=== PATIENT | female | born 1975 | race Caucasian/White ===

== ENCOUNTER 2022-04-26 08:41 | Outpatient (REF) | payer OTHER, SELFPAY ==
[2022-04-26 08:52] LABS: MANUAL DIFF FLAG NO
[2022-04-26 08:58] LABS: Basophils Percent Auto 0.4 % (0-2); Eosinophils Absolute Auto 0.1 X10*3/uL (0.0-0.4); Eosinophils Percent Auto 1.1 % (0-4); Hematocrit 40.6 % (37.0-47.0); Hemoglobin 13.3 g/dl (12.0-16.0); Imm Gran Abs Auto 0.02 X10*3/uL (0.00-0.03); Imm Gran Pct Auto 0.4 % (0.0-0.4); Lymphocytes Percent Auto 35.7 % (20-40); Mean Corpuscular HGB Conc 32.8 g/dl (31.0-35.0); Mean Corpuscular Volume 88.6 fL (80.0-98.0); Monocytes Absolute Auto 0.4 X10*3/uL (0.1-1.2); Monocytes Percent Auto 6.6 % (2-11); Neutrophils Absolute Auto 3.1 x10*3/uL (2.0-8.3); Neutrophils Percent Auto 55.8 % (45-73); Platelet Count 189 X10*3/uL (160-400); Red Blood Count 4.58 X10*6/uL (4.20-5.50); Red Cell Distribution Width 12.7 % (11.0-16.0); White Blood Count 5.5 X10*3/uL (4.8-10.8)
[2022-04-26 09:22] LABS: Alanine Aminotransferase 24 U/L (0-31); Albumin Level 4.2 g/dL (3.5-5.0); Alkaline Phosphatase 56 U/L (39-117); Aspartate Amino Transferase 21 U/L (5-31); Bilirubin Direct 0.2 mg/dL (0.0-0.5); Bilirubin Total 0.7 mg/dL (0.0-1.0); Total Protein 7.1 g/dL (6.5-8.0)
== END 2022-04-26 08:42 | disposition home or self-care (01) ==
LOC: HO.LAB 08:41
PROVIDERS: Visit Provider Physician Assistant
DX: R10.9 Unspecified abdominal pain (principal); K59.09 Other constipation; G89.29 Other chronic pain
CPT/HCPCS: 36415; 80076; 85025; 99202

== ENCOUNTER 2022-05-04 14:44 | Outpatient (REF) | payer OTHER, SELFPAY ==
[2022-05-04 15:55] LABS: TSH reflex Free T4 0.79 uIU/mL (0.32-4.0)
[2022-05-06 13:58] LABS: Transglutaminase Ab IgG <1.0 U/mL; Transglutaminase IgA <1.0 U/mL
== END 2022-05-04 14:45 | disposition home or self-care (01) ==
LOC: HO.LAB 14:44
PROVIDERS: PCP Nurse Practitioner Family; Visit Provider Nurse Practitioner Family
DX: R10.9 Unspecified abdominal pain (principal); K59.00 Constipation, unspecified
CPT/HCPCS: 36415; 84443; 86364; 99212

== ENCOUNTER 2022-05-07 11:35 | Day surgery (SDC) | payer OTHER, SELFPAY ==
--- NOTE | 2022-05-06 13:23 | HO.ANESPROP2 ---
Documented by User: Moon Diaz NP 05/06/22 13:23 HPI - Anesthesia Eval Consult details Narrative: 46yo F for Colonoscopy PMFSH Active Problems Active Problems: All Active Problems (Updated 04/26/22 @ 09:09 by Khadijah Dominguez PA-C) Chronic constipation (Acute) Chronic abdominal pain (Acute) Encounter for screening colonoscopy (Acute) Family History Family History Mother HTN (hypertension) Hx of thyroid disease Dementia Hyperlipidemia Paternal Grandmother Cancer of breast Hyperlipidemia Surgical History Surgical History Hx of hysterectomy Hx of ovarian cyst Social History Social History Household Members: Children Alcohol intake: current Alcohol intake frequency: holidays/special occasions only Patient Tobacco Use Status: Never used Tobacco Use of substances other than those prescribed or required for medical reasons: No Are you DNR?: No Advance Directives: No Advance Directives Information Provided: Yes Meds Allergies Allergy/AdvReac Type Severity Reaction Status Date / Time No Known Allergies Allergy Verified 05/04/22 13:42 Exam Exam Date and Time: May 06, 2022 1323 Pertinent Lab Results Pertinent Lab Results: Laboratory Tests 04/26/22 08:51 WBC 5.5 Hgb 13.3 Hct 40.6 Plt Count 189 Assessment and Plan Assessment Anesthesia Assessment: Chart Reviewed Documented by User: Brenda Walton MD 05/07/22 12:52 PMFSH Family History Family History Mother HTN (hypertension) Hx of thyroid disease Dementia Hyperlipidemia Paternal Grandmother Cancer of breast Hyperlipidemia Family history of problems with anesthesia: No Surgical History Surgical History Hx of hysterectomy Hx of ovarian cyst History of Problems with Anesthesia: No Social History Social History Household Members: Children Alcohol intake: current Alcohol intake frequency: holidays/special occasions only Patient Tobacco Use Status: Never used Tobacco Use of substances other than those prescribed or required for medical reasons: No Are you DNR?: No Advance Directives: No Advance Directives Information Provided: Yes Meds Allergies Allergy/AdvReac Type Severity Reaction Status Date / Time No Known Allergies Allergy Verified 05/04/22 13:42 Exam Airway Mallampati Class: II TM Dist: >3cm Neck ROM: Full Heart: rrr Lungs: cta Assessment and Plan Assessment Anesthesia Assessment: Anesthesia Plan Discussed Final Anesthetic Review Family History of Problems with Anesthesia: No History of Problems with Anesthesia: No NPO: Yes ASA Class: II Final Preanesthetic Review: No Changes in Pt Med Stat, Meds/Allgs Chart Reviewed and Consent Obtained/Reviewed Patient Risk: Intermediate Procedure Risk: Intermediate Anesthetic Plan Anesthetic Plan: MAC: Disposition: Standard PACU
[2022-05-07 12:51] VITALS: BP 132/81; PULSE 66; RESP 16; TEMP 37.3; O2SAT 100
[2022-05-07] MEDS: Lactated Ringers 1,000 ML 100 ML IVCONT (12:54)
[2022-05-07 12:55] VITALS: BMI 23.8
--- NOTE | 2022-05-07 14:32 | PM.OP ---
Brief Operative Note Date of Service: 05/07/22 Pre-op diagnosis: colon cancer screen, left lower quadrant pain, chronic constipation Post-op diagnosis: other ( diverticulosis, hemorrhoids) Procedure: COLONOSCOPY TO CECUM WITH BIOPSIES Surgeon: Evelia Burrell MD Anesthesia: MAC Was an Electronic Funds Transfer Coordinator used for this Procedure?: Yes Electronic Funds Transfer Coordinator: Monster Hackett Estimated blood loss (mL): 0 Pathology: other ( A- RANDOM RIGHT COLON BXS R/O MICROSCOPIC COLITIS B- RANDOM LEFT COLON BXS R/O MICROSCOPIC COLITIS) Condition: stable Disposition: PACU
--- NOTE | 2022-05-07 14:33 | W.PM.OPN ---
Operative Note Operative Note Date of Service: 05/07/22 Narrative: Pre-op diagnosis: colon cancer screen, left lower quadrant pain, chronic constipation Post-op diagnosis:?other ( diverticulosis, hemorrhoids) Surgeon: Evelia Burrell MD Anesthesia:?MAC COLONOSCOPY TILL CECUM WITH BIOPSIES Consent: Indications for the procedure and potential complications of bleeding, perforation, reaction to medications and missed diagnosis were discussed with the patient and informed consent was obtained. Instrument: Olympus PCF H 190 L variable stiffness pediatric colonoscope Monitoring: Vital signs and clinical assessment, intermittent blood pressure monitoring, continuous EKG monitoring, Pulse oximetry and Carbon Dioxide monitoring were done throughout the procedure. Colon withdrawl time was 20 minutes. Procedure: The patient was placed in the left lateral decubitis position and pre-procedure medications were administered. After a digital rectal examination of the ano-rectum, the video colonoscope was inserted into the rectum and advanced through the colon to the cecum. The colonoscope was slowly withdrawn in a retrograde panoramic fashion and the colon mucosa was carefully examined including a retroflexed view of the rectum. Findings and interventions are described below. Procedure Difficulty: Without difficulty Findings: Terminal Ileum: Distal 5 cms was examined and appeared normal Cecum: Normal Ascending Colon: Normal Transverse Colon: Normal Descending Colon: Normal Sigmoid Colon: Moderate diverticulosis Rectum: Normal Ano-rectum: Moderate internal hemorrhoids and perianal skin tags Colon preparation: Good Impression and Post Procedure Diagnosis: Colonoscopy Findings: No polyps were detected. Random biopsies were obtained from the right and left colon to check for microscopic colitis Moderate diverticulosis seen in the sigmoid colon Moderate hemorrhoids on retroflexed exam. No clear etiology found for abdominal pain - likely due to constipation. Plan: Await pathology results Patient has an appointment on 05/21/22 in the [facility] with Glenna Elaine FNP-BC. Repeat Colonoscopy in 10 years if biopsies are normal. Above findings were reviewed with the patient and diverticulosis handout was given in the discharge area
--- NOTE | 2022-05-07 14:33 | MHC.SHP ---
Pre-Procedural Eval Section A Date of Service: 05/07/22 The patient is an INPATIENT: No The History & Physical has been completed within 30 days and I have reviewed it.: No Section B Chief Complaint: Left lower quadrant pain,screening Details of Present Illness: LEFT LOWER QUADRANT PAIN, CHRONIC CONSTIPATION Relevant Family History (Specify if Yes): No Relevant Social History: None Present Medications: None Medical History: Significant History ( chronic abdominal pain, chronic constipation) History of Previous Operations: Relevant previous surgery/procedure and date(s) (Hx of hysterectomy Hx of ovarian cyst) Allergies: Allergies Allergy/AdvReac Type Severity Reaction Status Date / Time No Known Allergies Allergy Verified 05/04/22 13:42 Review of Systems Sugical H&P ROS: Negative: Constitution, Cardiovascular, Respiratory and Gastrointestinal Exam Surgical H&P Exam: Normal: Heart, Normal: Lungs, Normal: Extremities and Normal: Abdomen Plan Diagnosis/Plan: Unchanged I have reviewed the history and physical and performed a pertinent physical examination on my patient. No changes have occurred unless specified.
[2022-05-07 15:12] VITALS: BP 84/46; PULSE 74; RESP 16; TEMP 36.6; O2SAT 98
[2022-05-07 15:27] VITALS: BP 98/57; PULSE 80; RESP 16; O2SAT 98
[2022-05-07 15:42] VITALS: BP 106/70; PULSE 71; RESP 18; TEMP 37.1; O2SAT 98
== END 2022-05-07 16:08 | disposition home or self-care (01) ==
PROVIDERS: PCP Nurse Practitioner Family; Visit Provider Internal Medicine Gastroenterology
PROC: 0DJD8ZZ Inspection of Lower Intestinal Tract, Via Natural or Artificial Opening Endoscopic (ICD-10-PCS; CPT 45378; principal; 2022-05-07 13:40)
DX: Z12.11 Encounter for screening for malignant neoplasm of colon (principal); K52.9 Noninfective gastroenteritis and colitis, unspecified; K59.09 Other constipation; K57.30 Diverticulosis of large intestine without perforation or abscess without bleeding; K64.8 Other hemorrhoids; K64.4 Residual hemorrhoidal skin tags; Z79.899 Other long term (current) drug therapy
CPT/HCPCS: 45380; 88305

== ENCOUNTER → 2022-05-21 14:34 | Outpatient (BNVA) | payer OTHER, SELFPAY | PROVIDERS: PCP Nurse Practitioner Family; Referring Provider Nurse Practitioner Family; Visit Provider Nurse Practitioner Family | DX: K57.30 Diverticulosis of large intestine without perforation or abscess without bleeding (principal); K64.8 Other hemorrhoids; K64.4 Residual hemorrhoidal skin tags; K59.04 Chronic idiopathic constipation; R10.32 Left lower quadrant pain; Z98.890 Other specified postprocedural states | CPT/HCPCS: 99212 ==

== ENCOUNTER → 2022-08-20 13:49 | Outpatient (BNVA) | payer OTHER, SELFPAY | PROVIDERS: PCP Nurse Practitioner Family; Referring Provider Nurse Practitioner Family; Visit Provider Nurse Practitioner Family | DX: K57.90 Diverticulosis of intestine, part unspecified, without perforation or abscess without bleeding (principal); K59.04 Chronic idiopathic constipation; R10.32 Left lower quadrant pain | CPT/HCPCS: 99212 ==

== ENCOUNTER 2023-06-08 08:07 | Outpatient (AMB) | payer OTHER, SELFPAY ==
--- NOTE | 2023-06-08 08:19 | MHC.OFFVIS ---
Intake Vital Signs 06/08/23 08:23 Height 5 ft 2 in Weight 132 lb BMI 24.1 BP 113/60 Blood Pressure Location Lt brachial Position Sitting Pulse 72 Intake Visit Reasons: Intestine Pain, Diverticulosis Intake Note: Patient follow up for Intestine pain a Diverticulosis. Patient cc: Nauseas on and off, left lower intestine pain, and medication is not working for the pain. Six Pack Packer Required: Yes Six Pack Packer Name: [facility] [place] [facility] Accompanied by: Self / Same As Patient Allergies shrimp Allergy (Severe, Verified 06/08/23 16:57) Angioedema HPI Intestine Pain, Diverticulosis HPI Details LAST VISIT: Diverticulosis High-fiber diet discussed with patient. Patient can continue taking MiraLax as well. Denies any abdominal pain or discomfort Chronic idiopathic constipation History of chronic constipation. Patient also has diverticulosis. Currently is taking senna and Colace as well as MiraLax in the morning. Patient reports that she has been moving her bowels without any issues. LLQ abdominal pain Left lower quadrant pain resolved after patient started taking medications to help her move her bowels. Currently she is moving her bowels well and is not having any discomfort. Continue current treatment. Patient will call the office if her pain returns. I will see her In 1 year, sooner on as needed basis. Patient is agreeable to this plan and verbalizes understanding of instructions. She was given the opportunity to ask questions and all questions answered. ? Thank you for allowing me to participate in her care Plan Medications Changed From polyethylene glycol 3350 17 grams PO DAILY 510 grams 2RF To polyethylene glycol 3350 (Miralax) 17 grams PO DAILY 510 grams 3RF Refilled sennosides (Natural Senna Laxative) 8.6 mg PO BEDTIME 90 tabs 3RF constipation K59.00 docusate sodium (Colace) 200 mg (2 x 100 mg) PO BEDTIME 180 caps 3RF TODAY'S VISIT Patient is here today for follow-up. Patient reports that she went to see her paralegal specialist and was told to stop taking Senokot. Patient reports that she became constipated, started taking Dulcolax tablets, however she does not feel like it helps. Patient has pain and cramping in the left lower quadrant again. Patient denies any melena, hematochezia, unintentional weight loss or ribbon like stools. Patient reports that she also feels very bloated and feels quite tender to the left lower quadrant. Patient denies any dyspepsia, dysphagia or odynophagia. Patient denies any other GI concerning symptoms. No nausea or vomiting. No fever or chills. PFSH Medical History Chronic abdominal pain Chronic constipation Diverticulosis Surgical History Hx of colonoscopy Hx of ovarian cyst Hx of hysterectomy Family History Mother HTN (hypertension) Hx of thyroid disease Dementia Hyperlipidemia Paternal Grandmother Cancer of breast Hyperlipidemia Social History Household Members: Children Alcohol intake: current Alcohol intake frequency: holidays/special occasions only Patient Tobacco Use Status: Never used Tobacco Review of Systems Const Denies weight gain and Denies weight loss ENT Reports no additional complaints, Denies dysphagia and Denies odynophagia Card Reports no additional complaints Resp Reports no additional complaints GI Reports abdominal pain (occasional), Denies belching, Denies melena, Denies bloating, Reports constipation, Denies dysphagia, Denies excessive flatus, Denies dyspepsia, Denies heartburn, Denies diarrhea, Denies loose stools, Denies nausea, Denies odynophagia and Denies vomiting Reports no additional complaints Musc Reports no additional complaints Neuro Reports no additional complaints Psych Reports no additional complaints Endo Reports no additional complaints Physical Exam Vital Signs: Last Vital Signs Pulse 72 06/08/23 08:23 BP 113/60 06/08/23 08:23 BMI result Body Mass Index 24.1 Const General: healthy appearing, no acute distress and well developed Nutritional Appearance: well nourished Orientation/consciousness: patient oriented x3 HEENT Head: Yes normal to inspection, Yes normocephalic and Yes atraumatic Face and sinus: Yes normal facial exam Mouth: Normal oral and palatal mucosa present Throat: Yes posterior oropharynx normal, Yes tonsils normal and Yes uvula midline Eyes General: appearance normal, both eyes and all related structures Neck Neck: Yes normal visual inspection, Yes full ROM and Yes trachea midline Thyroid: Thyroid normal Resp Effort & Inspection: normal respiratory effort, able to speak in complete sentences, no tracheal deviation and symmetric chest movement Auscultation: clear to auscultation bilaterally Cardio Rate: regular rate GI Inspection: Yes normal to inspection and No distended Palpation (GI): Soft to palpation, not firm, nontender and No hepatosplenomegaly present Auscultation: normal bowel sounds General: Yes no CVA tenderness Back/Spine/Pelvis Back: no CVA tenderness Skin General skin exam: elasticity normal, turgor normal and dry skin Neuro General: patient oriented x3 Psych Appearance: grossly normal Mental Status: mental status grossly normal Assessment & Plan Assessment & Plan (1) LLQ abdominal pain: Code(s): R10.32 - Left lower quadrant pain (2) Constipation: Code(s): K59.00 - Constipation, unspecified Qualifiers: Constipation type: chronic idiopathic constipation Qualified Code(s): K59.04 - Chronic idiopathic constipation (3) Postprandial abdominal bloating: Code(s): R14.0 - Abdominal distension (gaseous) Plan Will start patient again on Senokot. Patient was encouraged to increase fluid intake and activity to promote better bowel motility. Patient will also try to take Colace to capsule. Left lower quadrant tenderness. Patient was diagnosed on colonoscopy with diverticulosis. No fever, no chills, unlikely colitis, however possible diverticulitis. Patient is allergic to shrimp will do a dry CT scan. Patient will return in 3 months, sooner on as needed basis. Patient is agreeable to this plan and verbalizes understanding of instructions. She was given the opportunity to ask questions and all questions answered. Thank you for allowing me to participate in her care Orders: Orders CT abdomen pelvis wo IV con Today R10.32 - Left lower quadrant pain Medications: Refilled sennosides (Natural Senna Laxative) 8.6 mg PO BEDTIME 90 tabs 3RF constipation K59.00 - Constipation, unspecified Coding Level of Care Code Est Pt Level 4 (68187) Diagnoses LLQ abdominal pain R10.32 Chronic idiopathic constipation K59.04 Constipation type: chronic idiopathic constipation Postprandial abdominal bloating R14.0 Time Spent (min) 35 Comment 15 minutes spent with patient and additional 10 minutes spent reviewing her records
[2023-06-08 08:23] VITALS: BP 113/60; PULSE 72; BMI 24.1
== END 2023-06-08 09:02 | disposition home or self-care (01) ==
PROVIDERS: PCP Nurse Practitioner Family; Visit Provider Nurse Practitioner Family
DX: R10.32 Left lower quadrant pain (principal); K59.04 Chronic idiopathic constipation; R14.0 Abdominal distension (gaseous)
CPT/HCPCS: 99214

== ENCOUNTER → 2023-06-08 08:07 | Outpatient (BNVA) | payer OTHER, SELFPAY | PROVIDERS: PCP Nurse Practitioner Family; Visit Provider Nurse Practitioner Family | DX: R10.32 Left lower quadrant pain (principal); R14.0 Abdominal distension (gaseous); K59.04 Chronic idiopathic constipation | CPT/HCPCS: 99212 ==

== ENCOUNTER 2023-06-10 13:43 | Outpatient (REF) | payer OTHER, SELFPAY ==
--- NOTE | ~2023-06-10 | CT_ITS ---
EXAMINATION: CT ABDOMEN AND PELVIS WITHOUT CONTRAST CLINICAL INFORMATION: Left lower quadrant pain COMPARISON: None available. TECHNIQUE: Multidetector volumetric imaging was performed from the superior aspect of the liver through the pubic symphysis. Sagittal and coronal reformatted images were obtained on the technologist's workstation. This CT examination was performed using dose optimization techniques as appropriate, variously including the following: *Automated exposure control *Adjustment of mA and/or kV according to patient size (this includes techniques or standardized protocols for targeted exams where dose is matched to indication/reason for exam; i.e. extremities or head) *Use of iterative reconstruction technique DLP: 352 mGy-cm FINDINGS: Examination is received for dictation on 06/17/2023, and is limited by the lack of oral and intravenous contrast, and a paucity of intra-abdominal adipose tissue. LUNG BASES: The visualized lung bases are unremarkable. LIVER, GALLBLADDER, AND BILIARY TREE: The liver is normal in size, shape, and attenuation. A 15 mm cyst is evident in the dome of the right hepatic lobe, for which no specific imaging follow-up is needed. There is a Jorden configuration to the liver. No biliary ductal dilatation is present.. The gallbladder is unremarkable with no evidence of radiopaque gallstones, gallbladder wall thickening, or obvious pericholecystic inflammatory changes. PANCREAS: Unremarkable. SPLEEN: Unremarkable. ADRENAL GLANDS: Unremarkable. KIDNEYS AND URETERS: The kidneys are normal in size, shape, and attenuation. No hydronephrosis, hydroureter, or calculi seen. No perinephric stranding. BLADDER: Unremarkable. GASTROINTESTINAL TRACT: The small and large bowel are unremarkable. The appendix is unremarkable. ABDOMINAL WALL: No significant hernia is appreciated. LYMPH NODES: Normal. VASCULAR: Unremarkable. PELVIC VISCERA: Uterus is not identified and presumably surgically absent. There are no adnexal masses. OSSEOUS STRUCTURES: Degenerative disc disease and a calcified disc herniation are present at L5-S1. CT/CT abdomen pelvis wo IV con IMPRESSION: 1. No acute findings in the abdomen or pelvis, allowing for the limitations of the unenhanced examination. 2. Incidental calcified L5-S1 disc herniation and associated degenerative disc disease. Fleischner guidelines were followed.
== END 2023-06-10 13:44 | disposition home or self-care (01) ==
LOC: HO.CT 13:43
PROVIDERS: PCP Nurse Practitioner Family; Visit Provider Nurse Practitioner Family
DX: R10.32 Left lower quadrant pain (principal)
CPT/HCPCS: 74176

== ENCOUNTER → 2023-06-29 16:17 | Outpatient (BNVA) | payer OTHER, SELFPAY | PROVIDERS: PCP Nurse Practitioner Family; Visit Provider Nurse Practitioner Family ==

== ENCOUNTER 2023-07-15 09:41 | Outpatient (AMB) | payer OTHER, SELFPAY ==
--- NOTE | 2023-07-15 09:44 | A.OFFVIS_ITS ---
Intake Vital Signs 07/15/23 09:51 Height 5 ft 2 in Weight 138 lb 0.15 oz BMI 25.2 BP 137/88 Blood Pressure Location Rt brachial Position Sitting Pulse 80 Intake Visit Reasons: 2 weeks f/u diverticulosis Intake Note: This patient presents for a two week follow-up assessment for diverticulosis. Patient c/o; reports pain, reports bowel movement daily, reports completed course of antibiotics. Honing Machine Operator Required: Yes Honing Machine Operator Language: [employer] Cake Decorator Name: Sheldon Information Interpreted: non-clinical & clinical Accompanied by: Self / Same As Patient Allergies shrimp Allergy (Severe, Verified 07/15/23 10:02) Angioedema No Known Drug Allergies Allergy (Unknown, Verified 07/15/23 10:02) none HPI 2 weeks f/u diverticulosis HPI Details LAST VISIT: LLQ abdominal pain Constipation Postprandial abdominal bloating Plan Continue current bowel management. Patient will continue increasing water intake and activity to promote better bowel motility. Patient does have a left lower quadrant tenderness, will send a script for antibiotic for 7 days. Patient can take dicyclomine once or twice a day for discomfort. Patient was encouraged to making sure that she is moving her bowels well without any issues. She was encouraged to report to emergency department if her pain will get worse, start with severe diarrhea, cramping, bloody stool or fever. I will see patient in 2 weeks for re-evaluation, sooner on as needed basis. Patient is agreeable to this plan and verbalizes understanding of instructions. She was given the opportunity to ask questions and all questions answered. ? Thank you for allowing me to participate in her care Medications New dicyclomine 10 mg PO BID PRN 60 caps 2RF abdominal d iscomfort K58.9 levofloxacin 500 mg PO DAILY 7 days 7 tabs 0RF TODAY'S VISIT Patient is here today for follow-up. Patient reports that she finish antibiotics and continues to have left lower quadrant pain. Patient reports that she is drinking plenty fluids, change her diet. Follows low FODMAP diet for the most part. Patient reports that after her last appointment she did 2 days of clear liquids and reports that she had diarrhea than currently patient reports that she is moving her bowels without any issues. Patient denies any fever or chills. Reports postprandial bloating. Patient reports that she is unable to CPAP her pants as she is feeling bloated. Patient had CT scan done few weeks ago and no acute processes seen. However CT scan was done without IV or oral contrast. Patient has severe allergy to shrimp. Patient reports that dicyclomine does not help her with pain PFSH Medical History Diverticulosis Chronic constipation Chronic abdominal pain Surgical History Hx of colonoscopy Hx of ovarian cyst Hx of hysterectomy Family History Mother HTN (hypertension) Hx of thyroid disease Dementia Hyperlipidemia Paternal Grandmother Cancer of breast Hyperlipidemia Social History Household Members: Children Alcohol intake: current Alcohol intake frequency: holidays/special occasions only Patient Tobacco Use Status: Never used Tobacco Review of Systems Const Denies weight gain and Denies weight loss ENT Reports no additional complaints, Denies dysphagia and Denies odynophagia Card Reports no additional complaints Resp Reports no additional complaints GI Reports abdominal pain (LLQ), Denies belching, Denies melena, Reports bloating, Denies hematochezia, Denies change in bowel habits, Denies dysphagia, Denies ex cessive flatus, Denies dyspepsia, Denies heartburn, Denies diarrhea, Denies loose stools, Denies nausea, Denies odynophagia and Denies vomiting Reports no additional complaints Musc Reports no additional complaints Neuro Reports no additional complaints Psych Reports no additional complaints Endo Reports no additional complaints Physical Exam Vital Signs: Last Vital Signs Pulse 80 07/15/23 09:51 BP 137/88 07/15/23 09:51 BMI result Body Mass Index 25.2 Const General: healthy appearing, no acute distress and well developed Nutritional Appearance: well nourished Orientation/consciousness: patient oriented x3 Resp Effort & Inspection: normal respiratory effort, able to speak in complete sentences, no tracheal deviation and symmetric chest movement Auscultation: clear to auscultation bilaterally Cardio Rate: regular rate GI Inspection: Yes normal to inspection and No distended Palpation (GI): Soft to palpation, not firm, nontender and No hepatosplenomegaly present Auscultation: normal bowel sounds General: Yes no CVA tenderness Back/Spine/Pelvis Back: no CVA tenderness Skin General skin exam: elasticity normal, turgor normal and dry skin Neuro General: patient oriented x3 Psych Appearance: grossly normal Mental Status: mental status grossly normal Assessment & Plan Assessment & Plan (1) Diverticulosis: Code(s): K57.90 - Diverticulosis of intestine, part unspecified, without perforation or abscess without bleeding (2) LLQ abdominal pain: Code(s): R10.32 - Left lower quadrant pain Plan Patient will start taking Linzess daily. Continue low FODMAP diet. Continue drinking fluids. I will send patient for CT enterography. Patient will do this with oral contrast only. Will rule out diverticulitis. Unlikely colitis or Crohn's. Possible severe constipation, patient does have moderate diverticulosis of sigmoid colon. If fever, chills no BM for 2 days patient was encouraged to go to ED. I will see her in 3 weeks, sooner on as needed basis. Patient is agreeable to this plan and verbalizes understanding of instructions. She was given the opportunity to ask questions and all questions answered. Thank you for allowing me to participate in her care Orders: Orders CT enterography Today K57.90 - Diverticulosis of intestine, part unspecified, without perforation or abscess without bleeding, R10.32 - Left lower quadrant pain Medications: New linaclotide (Linzess) 145 mcg PO DAILY 30 caps 2RF polyethylene glycol 3350 (Miralax) As directed by gastroenterology department at [facility] 238 grams PO ONCE 238 grams 0RF Z12.11 - Encounter for screening for malignant neoplasm of colon bisacodyl (Dulcolax (bisacodyl)) take 4 tabs at noon the day before your colonoscopy 20 mg (4 x 5 mg) PO ONCE 1 day 4 tabs 0RF Z12.11 - Encounter for screening for malignant neoplasm of colon Discontinued levofloxacin Discontinued Reason: Doctor's Order 500 mg PO DAILY 7 days 7 tabs 0RF Coding Level of Care Code Est Pt Level 4 (06959) Diagnoses Diverticulosis K57.90 LLQ abdominal pain R10.32 Time Spent (min) 40 Comment 25 minutes spent with patient and additional 15 minutes spent reviewing her records
[2023-07-15 09:51] VITALS: BP 137/88; PULSE 80; BMI 25.2
== END 2023-07-15 10:35 | disposition home or self-care (01) ==
PROVIDERS: PCP Nurse Practitioner Family; Visit Provider Nurse Practitioner Family
DX: K57.90 Diverticulosis of intestine, part unspecified, without perforation or abscess without bleeding (principal); R10.32 Left lower quadrant pain
CPT/HCPCS: 99214

== ENCOUNTER → 2023-07-15 09:41 | Outpatient (BNVA) | payer OTHER, SELFPAY | PROVIDERS: PCP Nurse Practitioner Family; Visit Provider Nurse Practitioner Family ==

== ENCOUNTER 2023-07-28 08:29 | Emergency (ER) | payer OTHER, SELFPAY ==
[2023-07-28 08:36] VITALS: BP 115/83; PULSE 85; RESP 16; TEMP 36.6; O2SAT 100; BMI 24.8
[2023-07-28 08:58] LABS: MANUAL DIFF FLAG NO
[2023-07-28 09:02] LABS: Basophils Percent Auto 0.4 % (0-2); Eosinophils Absolute Auto 0.1 X10*3/uL (0.0-0.4); Eosinophils Percent Auto 1.3 % (0-4); Hematocrit 41.5 % (37.0-47.0); Hemoglobin 13.7 g/dl (12.0-16.0); Imm Gran Abs Auto 0.02 X10*3/uL (0.00-0.03); Imm Gran Pct Auto 0.3 % (0.0-0.4); Lymphocytes Absolute Auto 2.6 X10*3/uL (1.2-4.9); Lymphocytes Percent Auto 33.9 % (20-40); Mean Corpuscular Hemoglobin 29.3 pg (27.0-33.0); Mean Corpuscular Volume 88.9 fL (80.0-98.0); Mean Platelet Volume 10.2 fL (9.4-12.3); Monocytes Absolute Auto 0.4 X10*3/uL (0.1-1.2); Monocytes Percent Auto 5.7 % (2-11); Neutrophils Absolute Auto 4.5 x10*3/uL (2.0-8.3); Neutrophils Percent Auto 58.4 % (45-73); Platelet Count 224 X10*3/uL (160-400); Red Blood Count 4.67 X10*6/uL (4.20-5.50); Red Cell Distribution Width 12.8 % (11.0-16.0); White Blood Count 7.7 X10*3/uL (4.8-10.8)
[2023-07-28 09:04] LABS: Appearance Urine Clear; Color Urine Yellow; Glucose Urine UA Negative (Negative); Leukocyte Esterase Urine Negative (Negative); Nitrite Urine Negative (Negative); PH 6.5 (5.0-9.0); Urine Blood Negative (Negative); Urine Ketones Negative (Negative); Urine Protein Negative (Neg-Trace)
[2023-07-28 09:05] LABS: UPreg QC Valid YES; Urine Pregnancy NEGATIVE (NEGATIVE)
--- NOTE | 2023-07-28 09:14 | ED_ITS ---
HPI - Abdominal Pain General Chief Complaint: Abdominal Pain Stated Complaint: back pain Time Seen by Provider: 07/28/23 09:10 Source: patient, old records reviewed and geologist petroleum (maltese) Mode of arrival: ambulatory Limitations: no limitations History of Present Illness HPI narrative: 47 year old Citizen Of [place] Speaking female with pmhx significant for diverticulosis presents to the ED today from home for evaluation of left flank pain x2 months. Pain is constant and fluctuates in intensity. She describes it as a pulsating. Pain radiates down the left side of her torso, into her left buttock and down her left thigh. It does not radiate to back. Pain is exacerbated with sitting/movement. Reports the area becomes irritated when lying down on left side. Symptoms do not worsen with eating. No history of renal stones. Denies fever, chills, N/V, dysuria, hematuria. Denies chance of . Denies injury or trauma to the area. She reports following with her GI doctor for same over the last 2 months with unremarkable work up. She states that she was prescribed antibiotics for suspected diverticulitis 1 month ago which she completed without resolution of pain. During follow-up visit 2 weeks ago, she had an unremarkable dry CT scan abdomen/pelvis. Her GI doctor suspected constipation and prescribed her laxatives and pain medication which have not improved symptoms. She has another CT scan with contrast schedule for next week. Endorses regular BMs. geospatial imagery intelligence analyst utilized throughout visit to communicate with patient. Related Data Home Medications Medication Instructions Recorded Confirmed cholecalciferol (vitamin D3) 50 1 PO DAILY 06/08/23 mcg (2,000 unit) capsule Previous Rx's Medication Instructions Recorded polyethylene glycol 3350 17 17 g PO DAILY #510 grams 08/20/22 gram/dose oral powder (Miralax) docusate sodium 100 mg capsule 200 mg (2 x 100 mg) PO BEDTIME #60 02/16/23 caps sennosides 8.6 mg tablet (Natural 8.6 mg PO BEDTIME constipation #90 06/08/23 Senna Laxative) tabs dicyclomine 10 mg capsule 10 mg PO BID PRN abdominal 06/29/23 discomfort #60 caps bisacodyl 5 mg tablet,delayed 20 mg (4 x 5 mg) PO ONCE 1 day #4 07/15/23 release (Dulcolax (bisacodyl)) tabs linaclotide 145 mcg capsule 145 mcg PO DAILY #30 caps 07/15/23 (Linzess) polyethylene glycol 3350 17 238 g PO ONCE #238 grams 07/15/23 gram/dose oral powder (Miralax) cyclobenzaprine 5 mg tablet 5 mg PO BEDTIME PRN muscle spasm 07/28/23 #7 tabs lidocaine 5 % topical patch 1 patch topical DAILY #15 ea 07/28/23 (Lidoderm) Allergies Allergy/AdvReac Type Severity Reaction Status Date / Time shrimp Allergy Severe Angioedema Verified 07/28/23 08:35 No Known Drug Allergies Allergy Unknown none Verified 07/28/23 08:35 Review of Systems Review of Systems Constitutional: No fever, chills, fatigue, night sweats, weight changes ENT/Mouth: No ear pain, hearing loss, nasal congestion, sinus pain, rhinorrhea, sore throat Eyes: No eye pain, swelling, redness, vision changes, discharge Cardio: No chest pain, palpitations, FERRIS, orthopnea, peripheral edema Pulm: No SOB, cough, sputum, wheezing, dyspnea, hemoptysis GI: No nausea, vomiting, hematemesis, abdominal pain, diarrhea, constipation, hematochezia, melena, +left flank pain : No irregular bleeding, dysuria, frequency, urgency, hesitancy, hematuria, flank pain, urinary flow changes, urinary incontinence or retention MSK: No back pain, neck pain, joint pain, myalgias Skin: No lesions, rashes Neuro: No weakness, numbness, paresthesias, LOC, dizziness, headache Psych: No anxiety/panic, depression, SI/HI, AH/VH All other systems reviewed and are negative. [facility] Past Medical History Attestation statement: The following information was validated with the patient. Source: old records reviewed and nursing notes reviewed Medical History Diverticulosis Chronic constipation Chronic abdominal pain Surgical History Hx of colonoscopy Hx of ovarian cyst Hx of hysterectomy Family History Family History Mother HTN (hypertension) Hx of thyroid disease Dementia Hyperlipidemia Paternal Grandmother Cancer of breast Hyperlipidemia Social History Social History Household Members: Children Alcohol intake: current Alcohol intake frequency: holidays/special occasions only Patient Tobacco Use Status: Never used Tobacco Smoked in Last 30 Days: No Use of substances other than those prescribed or required for medical reasons: No Advance Directives: No Physical Exam ED Vital Signs: Vital Signs - 24 hr 07/28/23 08:36 07/28/23 09:51 07/28/23 11:28 Temperature 98 F 98 F 98.3 F Pulse Rate 85 79 63 Respiratory Rate 16 16 16 Blood Pressure 115/83 127/81 111/75 Pulse Oximetry 100 100 100 Oxygen Delivery Method Room Air Room Air Room Air BMI result Body Mass Index 24.8 Vital signs stable. Afebrile Const General: cooperative, healthy appearing and no acute distress Orientation/consciousness: patient oriented x3 Limitations: no limitations HENMT Head: Yes normal to inspection Eyes General: appearance normal, both eyes and all related structures Conjunctivae: conjunctivae normal Sclerae: sclerae normal Pupils: Equal, round and reactive pupils present Neck Neck: Yes normal visual inspection, Yes full ROM, Yes no lymphadenopathy and Yes no meningeal signs Resp Effort & Inspection: normal respiratory effort Auscultation: clear to auscultation bilaterally Cardio Rate: regular rate Rhythm: regular rhythm GI Other: + abdomen soft, ND/NT, no rebound or guarding, no hepatosplenomegly. normoactive bsx4 General: Yes no CVA tenderness Back/Spine/Pelvis Other: + left thoracic and lumbar paraspinal muscle ttp + No midline spinous tenderness or step off deformity Back: no CVA tenderness Skin General skin exam: no rashes or lesions noted Neuro General: patient oriented x3, gait normal, tone normal and no meningeal signs Cranial nerves: Yes Equal, round and reactive pupils present Motor exam (neuro): 5/5 motor strength present throughout Deep tendon reflexes (DTR's): Right patellar reflex intensity grade: 2+ and Left patellar reflex intensity grade: 2+ Course Course Course Narrative: 0943-- CBC without leukocytosis or anemia. No left shift. H&H stable. Chemistry without acute electrolyte abnormality. Normal renal function. Normal liver function. UA negative for infection or . > on review of GI note, patient had an appointment with [facility] on 07/15/2023 with plan to start daily Linzess, continue low FODMAP diet, increase fluid intake, and schedule CT abd/pelvis with PO contrast to r/o diverticulitis. Provider suspected severe constipation due to moderate diverticulosis of sigmoid colon. She was encouraged to come to the ED for worsening symptoms. > when discussing this plan with patient, patient states that her CT scan is scheduled for 08/12/23. She states that she can no longer live with this pain. It's been two months . She decided to come to ED for further rule out. > On exam, findings are more consistent with pain along the left flank/left paraspinal muscles rather than left upper abdomen. Given pain radiation down left buttock and thigh, will r/o msk pain. Previous CT abdomen pelvis shows incidental finding of calcified L5-S1 disc herniation with associated degenerative disc disease. There is possibility that this may be contributing to patient's symptoms. As vitals are completely WNL and labs are unremarkable, I do not feel as though repeat imaging is necessary. > urine negative for infection and 1030-- patient initially stated that she would find a ride home since she was being given Flexeril. She now tells RN that she would like to drive home. Flexeril will be held. Toradol ordered. Medical Decision Making Medical Decision Making [facility] Narrative: 47 year old Citizen [place] Speaking female with pmhx significant for diverticulosis presents to the ED today from home for evaluation of left flank pain x2 months. Vital signs stable, afebrile. Patient is nontoxic-appearing and in no acute distress. Abdomen soft, ND/NT, no rebound or guarding. No hepatosplenomegaly. Normoactive bowel sounds x4. No CVAT bilaterally. No midline spinous tenderness or step off deformity. There is left-sided thoracic and lumbar paraspinal muscle tenderness to palpation. Negative straight leg raise bilaterally. Clinical concern for msk sprain/ strain,, sciatica, disc herniation, IBS. Unlikely vertebral fracture/subluxation, nephrolithasis, hydronephrosis, pyelonephritis, UTI, UC/ crohns, , acute abdomen, diverticulitis. Plan for basic labs, UA, pain control and re-evaluation. Differential Diagnosis Differential Diagnoses: The differential diagnosis associated with the presentation includes As above. Admission/Observation Not indicated. Lab Data [facility] Lab Attestation statement: I reviewed the patient's lab results. As above. 02/22/24 08:52 07/28/23 08:52 Labs: Lab Results 07/28/23 Range/Units 08:52 WBC 7.7 (4.8-10.8) X10*3/uL RBC 4.67 (4.20-5.50) X10*6/uL Hgb 13.7 (12.0-16.0) g/dl Hct 41.5 (37.0-47.0) % MCV 88.9 (80.0-98.0) fL MCH 29.3 (27.0-33.0) pg MCHC 33.0 (31.0-35.0) g/dl RDW 12.8 (11.0-16.0) % Plt Count 224 (160-400) X10*3/uL MPV 10.2 (9.4-12.3) fL Immature Gran % (Auto) 0.3 (0.0-0.4) % Neut % (Auto) 58.4 (45-73) % Lymph % (Auto) 33.9 (20-40) % [place] % (Auto) 5.7 (2-11) % Eos % (Auto) 1.3 (0-4) % Baso % (Auto) 0.4 (0-2) % Lymph # (Auto) 2.6 (1.2-4.9) X10*3/uL [place] # (Auto) 0.4 (0.1-1.2) X10*3/uL Eos # (Auto) 0.1 (0.0-0.4) X10*3/uL Baso # (Auto) 0.0 (0.0-0.2) X10*3/uL Abs Immat Gran (auto) 0.02 (0.00-0.03) X10*3/uL Absolute Neuts (auto) 4.5 (2.0-8.3) x10*3/uL Absolute Nucleated RBC 0.000 (0.0-0.012) X10*3/uL Nucleated RBC % (auto) 0.0 (0.0-0.2) /100WBC Sodium 141 (135-145) mmol/L Potassium 3.7 (3.3-5.1) mmol/L Chloride 105 (96-108) mmol/L Carbon Dioxide 28 (22-29) mmol/L Anion Gap 12 (12-20) BUN 12 (9-16) mg/dL Creatinine 0.89 (0.5-1.4) mg/dL Estim Creat Clear Calc 68.2 Estimated GFR > 60 Random Glucose 87 (60-115) mg/dL Calcium 9.8 (8.4-10.2) mg/dL Total Bilirubin 0.5 (0.0-1.0) mg/dL AST 25 (5-31) U/L ALT 25 (0-31) U/L Alkaline Phosphatase 62 (39-117) U/L Total Protein 7.8 (6.5-8.0) g/dL Albumin 4.3 (3.5-5.0) g/dL Urine Color Yellow Urine Appearance Clear Urine pH 6.5 (5.0-9.0) Ur Specific [place] 1.020 (1.005-1.025) Urine Protein Negative (Neg-Trace) mg/dL Urine Glucose (UA) Negative (Negative) mg/dL Urine Ketones Negative (Negative) mg/dL Urine Blood Negative (Negative) Urine Nitrite Negative (Negative) Ur Leukocyte Esterase Negative (Negative) Urine Test NEGATIVE (NEGATIVE) External Record Review External record reviewed: Inpatient record, Office record, Outpatient record, Prior outpatient labs, Prior outpatient radiology, Primary care record and Outside ED record Tests considered The following testing was considered but not selected: I considered obtaining repeat CT abdomen/pelvis however labs are normal, physical exam is benign. There is no concern for acute infectious process or acute abdomen. Not warranted at this time. I considered obtaining imaging of thoracic and lumbar spine however there has been no new injury or trauma to the back. There is no midline spinous tenderness. I suspect muscular etiology and do not feel as though imaging is necessary at this time. Prescription Management I considered prescription management with: Pain Medication and Other (steroid, muscle relaxer) Chronic Conditions Patient?s care impacted by: Other (diverticulosis) Social Determinants Patient?s care significantly limited by Social Determinants of Health including: Other Social Determinant of Health Medications Administered Discontinued Medications Generic Name Dose Route Start Last Admin Trade Name Freq PRN Reason Stop Dose Admin Cyclobenzaprine HCl 10 mg 07/28/23 09:31 07/28/23 10:38 Cyclobenzaprine Hcl 10 Mg Tablet PO 07/28/23 09:32 Not Given ONCE ONE Sodium Chloride 1,000 mls @ 999 mls/hr 07/28/23 09:45 07/28/23 11:32 Ns IV 07/28/23 10:45 Infused .Q1H1M TIFFANY Infusion Ketorolac Tromethamine 30 mg 07/28/23 10:38 07/28/23 10:39 Ketorolac Tromethamine 30 Mg/Ml Vial IVPUSH 07/28/23 10:39 30 mg ONCE ONE Administration Critical Care Time Critical Care Time Critical Care Time: No Discharge Plan Discharge Clinical Impression: Flank pain Patient Disposition: Home, Self-Care Instructions: Muscle Strain (ED), Abdominal Pain (ED), Flank Pain (ED) Additional Instructions: You were evaluated in the ED today for 2 months of left upper abdominal pain/back pain. Your labs today were normal. Labs do not demonstrate any acute infectious process. Your urine is negative for infection, blood, . You were given pain medication and fluids in ED today however declined muscle relaxer as you do not have a ride home. Your pain may be muscular in nature. Use ice several times per day for 20 minutes at a time for the next 48 hours and then change to heat. Flexeril is a muscle relaxer. Take this at night as it makes you drowsy. Do not drive, drink alcohol, or operate machinery while taking it. Lidoderm patches are numbing patches. Apply to painful areas. In addition you may take ibuprofen and Tylenol at home. There is no indication for repeat CT scan today. Please follow-up with GI doctor and keep appointment for outpatient CT scan. Call your GI doctor today to let them know about today's visit. If you develop new or worsening symptoms, such as fever, please return the ED. In the case of an emergency call 911. Usted fue evaluado en el servicio de urgencias hoy por 2 meses de dolor en la parte superior izquierda del abdomen/dolor de espalda. Tus an?lisis de hoy fueron normales. Los laboratorios no demuestran naif?n proceso infeccioso kamaljit. Connolly orina es negativa para infecci?n, isela, embarazo. Le dieron analg?sicos y l?quidos en el servicio de urgencias hoy, rolando rechaz? un relajante muscular porque no tiene transporte a casa. [place]olly dolor puede ser de naturaleza muscular. Use hielo varias veces al d?a ceferino 20 minutos a la vez ceferino las siguientes 48 horas y luego c?mbielo a calor. Flexeril es un relajante muscular. T?marcos por la noche ya que le produce alanna?o. No conduzca, nafisa alcohol ni opere maquinaria mientras lo est? tomando. Los parches de Lidoderm son parches adormecedores. Aplicar en las zonas dolorosas. Adem?s puedes eulalia ibuprofeno y Tylenol en casa. Actualmente no hay indicaci?n para repetir la tomograf?a computarizada. Bobby un seguimiento con el m?dico gastrointestinal y acuda a la minh para abiola tomograf?a computarizada para pacientes ambulatorios. Llame a connolly m?dico gastrointestinal hoy para informarle sobre la visita de hoy. Si desarrolla s?ntomas nuevos o que empeoran, akhil fiebre, regrese al servicio de urgencias. En jenni de emergencia llame al 911. Prescriptions: New cyclobenzaprine 5 mg tablet 5 mg PO BEDTIME PRN (Reason: muscle spasm) Qty: 7 0RF lidocaine [Lidoderm] 5 % adhesive patch,medicated 1 patch topical DAILY Qty: 15 0RF Rx Instructions: leave on most painful area for up to 12 hrs No Action docusate sodium 100 mg capsule 200 mg PO BEDTIME Qty: 60 3RF polyethylene glycol 3350 [Miralax] 17 gram/dose powder 17 g PO DAILY Qty: 510 3RF cholecalciferol (vitamin D3) 50 mcg (2,000 unit) capsule 1 PO DAILY sennosides [Natural Senna Laxative] 8.6 mg tablet 8.6 mg PO BEDTIME Qty: 90 3RF dicyclomine 10 mg capsule 10 mg PO BID PRN (Reason: abdominal discomfort) Qty: 60 2RF Linzess 145 mcg capsule 145 mcg PO DAILY Qty: 30 2RF polyethylene glycol 3350 [Miralax] 17 gram/dose powder 238 g PO ONCE Qty: 238 0RF Rx Instructions: As directed by gastroenterology department at [facility] bisacodyl [Dulcolax (bisacodyl)] 5 mg tablet,delayed release (DR/EC) 20 mg PO ONCE 1 Days Qty: 4 0RF Rx Instructions: take 4 tabs at noon the day before your colonoscopy Referrals: [facility] [place] Gastroenterology Services [Provider Group] Interventions: ED Discharge Assessment Last Done: 07/28/23 11:31 Discharge Date/Time: 07/28/23 12:00 Print Language: Citizen Of [place]
[2023-07-28 09:18] LABS: Alanine Aminotransferase 25 U/L (0-31); Albumin Level 4.3 g/dL (3.5-5.0); Alkaline Phosphatase 62 U/L (39-117); Anion Gap 12 (12-20); Aspartate Amino Transferase 25 U/L (5-31); Bilirubin Total 0.5 mg/dL (0.0-1.0); Blood Urea Nitrogen 12 mg/dL (9-16); Calcium 9.8 mg/dL (8.4-10.2); Carbon Dioxide 28 mmol/L (22-29); Chloride 105 mmol/L (96-108); Creatinine Clr Calc Pharmacy 68.2; Estimated Glomerular Filt Rate > 60; Glucose Random 87 mg/dL (60-115); Potassium 3.7 mmol/L (3.3-5.1); Sodium 141 mmol/L (135-145); Total Protein 7.8 g/dL (6.5-8.0)
[2023-07-28 09:51] VITALS: BP 127/81; PULSE 79; RESP 16; TEMP 36.6; O2SAT 100
[2023-07-28] MEDS: 0.9 % Sodium Chloride 1,000 ML 999 ML IV (10:24)
[2023-07-28] MEDS: Ketorolac Tromethamine 30 MG/ML VIAL IVPUSH (10:39)
[2023-07-28 11:28] VITALS: BP 111/75; PULSE 63; RESP 16; TEMP 36.8; O2SAT 100
== END 2023-07-28 12:00 | disposition home or self-care (01) ==
PROVIDERS: Emergency Provider Emergency Medicine
DX: R10.9 Unspecified abdominal pain (principal); M79.652 Pain in left thigh; M54.50 Low back pain, unspecified; R11.2 Nausea with vomiting, unspecified; Z79.899 Other long term (current) drug therapy
CPT/HCPCS: 36415; 80053; 81003; 81025; 85025; 96361; 96374; 99284; 99285; J1885

== ENCOUNTER 2023-08-12 12:18 | Outpatient (REF) | payer OTHER, SELFPAY ==
--- NOTE | ~2023-08-12 | CT_ITS ---
EXAMINATION: CT ABDOMEN AND PELVIS WITHOUT CONTRAST CLINICAL INFORMATION: Diverticulosis COMPARISON: 06/10/2023 TECHNIQUE: Multidetector volumetric imaging was performed from the superior aspect of the liver through the pubic symphysis. Sagittal and coronal reformatted images were obtained on the technologist's workstation. This CT examination was performed using dose optimization techniques as appropriate, variously including the following: *Automated exposure control *Adjustment of mA and/or kV according to patient size (this includes techniques or standardized protocols for targeted exams where dose is matched to indication/reason for exam; i.e. extremities or head) *Use of iterative reconstruction technique DLP: 368 mGy-cm FINDINGS: HOME HEALTH CNA: Nonobstructive bowel pattern. Calcification adjacent to the right greater trochanter. L5-S1 disc disease. LUNG BASES: Atelectasis. Nonenlarged heart. No pericardial effusion. LIVER, GALLBLADDER, AND BILIARY TREE: The liver is normal in size, shape, and attenuation. Stable 2.1 cm right subcapsular cyst. No biliary ductal dilatation is present. The gallbladder is unremarkable with no evidence of radiopaque gallstones, gallbladder wall thickening, or obvious pericholecystic inflammatory changes. PANCREAS: Unremarkable. SPLEEN: Unremarkable. ADRENAL GLANDS: Unremarkable. KIDNEYS AND URETERS: The kidneys are normal in size, shape, and attenuation. No hydronephrosis, hydroureter, or calculi seen. No perinephric stranding. BLADDER: Unremarkable. GASTROINTESTINAL TRACT: Stomach is under distended. Nonobstructive bowel pattern. Unremarkable appendix. Moderate fecal retention. ABDOMINAL WALL: No significant hernia is appreciated. LYMPH NODES: Normal. VASCULAR: Unremarkable. PELVIC VISCERA: Unremarkable. OSSEOUS STRUCTURES: Unremarkable. CT/CT abdomen pelvis wo IV con IMPRESSION: No acute intra-abdominal or pelvic pathology. Fleischner guidelines were followed.
[2023-08-12] MEDS: Barium Sulfate Oral (Mocha) 450 ML ORAL.SUSP 900 ML PO (14:53)
== END 2023-08-12 12:19 | disposition home or self-care (01) ==
LOC: HO.CT 12:18
PROVIDERS: PCP Nurse Practitioner Family; Visit Provider Nurse Practitioner Family
DX: R10.32 Left lower quadrant pain (principal); K57.90 Diverticulosis of intestine, part unspecified, without perforation or abscess without bleeding
CPT/HCPCS: 74176

== ENCOUNTER 2023-08-19 12:55 | Outpatient (AMB) | payer OTHER, SELFPAY ==
--- NOTE | 2023-08-19 13:08 | MHC.OFFVIS ---
Intake Vital Signs 08/19/23 13:09 Height 5 ft 2 in Weight 138 lb 7.205 oz BMI 25.3 BP 129/88 Blood Pressure Location Rt brachial Position Sitting Pulse 66 Intake Visit Reasons: f/u CT scan Intake Note: Patient presents to in office visit today in follow up of CT scan. CC: Patient c/o constant Left lower back pain. She states she is now taking Linzess in the evening but she has noticed that it does not works the same way it was working when she use to take it in the mornings. Pt states she usually has a BM the following day after taking the Linzess. Denies other GI symptoms today. Farm Facility Manager Required: Yes Accompanied by: Self / Same As Patient Allergies shrimp Allergy (Severe, Verified 08/19/23 13:11) Angioedema No Known Drug Allergies Allergy (Unknown, Verified 08/19/23 13:11) none HPI f/u CT scan HPI Details LAST VISIT: Diverticulosis LLQ abdominal pain Plan Patient will start taking Linzess daily. Continue low FODMAP diet. Continue drinking fluids. I will send patient for CT enterography. Patient will do this with oral contrast only. Will rule out diverticulitis. Unlikely colitis or Crohn's. Possible severe constipation, patient does have moderate diverticulosis of sigmoid colon. If fever, chills no BM for 2 days patient was encouraged to go to ED. I will see her in 3 weeks, sooner on as needed basis. Patient is agreeable to this plan and verbalizes understanding of instructions. She was given the opportunity to ask questions and all questions answered. ? Thank you for allowing me to participate in her care Orders Medications New linaclotide (Linzess) 145 mcg PO DAILY 30 caps 2RF polyethylene glycol 3350 (Miralax) As directed by gastroenterology department at [facility] 238 grams PO ONCE 238 grams 0RF Z12.11 bisacodyl (Dulcolax (bisacodyl)) take 4 tabs at noon the day before your colonoscopy 20 mg (4 x 5 mg) PO ONCE 1 day 4 tabs 0RF Z12.11 Discontinued levofloxacin Discontinued Reason: Doctor's Order 500 mg PO DAILY 7 days 7 tabs 0RF TODAY'S VISIT Patient is here today for follow-up and to discuss CT scan results. CT scan results discussed with patient. No acute processes found. Patient was found to have calcification adjacent to the right greater trochanter and L5-S1 disc disease. Patient continues to have pain to the left lower quadrant. Moderate amount of stool was seen on the CT as well. Patient was diagnosed with severe sigmoid diverticulosis. She is currently not moving her bowels well. Linzess has not worked as well as it did in the beginning. Patient change the time of when she is taking the medication. Patient is taking the medication in the evening after several meals and she should be taking that on empty stomach. Patient denies any nausea or vomiting. Pain gets worse when she also sits for longer period of time. Patient denies any nausea or vomiting. Denies any melena, hematochezia, unintentional weight loss or ribbon like stools. Patient denies any dyspepsia, dysphagia or odynophagia. [facility] Medical History Diverticulosis Chronic constipation Chronic abdominal pain Surgical History Hx of colonoscopy Hx of ovarian cyst Hx of hysterectomy Family History Mother HTN (hypertension) Hx of thyroid disease Dementia Hyperlipidemia Paternal Grandmother Cancer of breast Hyperlipidemia Social History Household Members: Children Alcohol intake: current Alcohol intake frequency: holidays/special occasions only Patient Tobacco Use Status: Never used Tobacco Review of Systems Const Denies weight gain and Denies weight loss ENT Reports no additional complaints, Denies dysphagia and Denies odynophagia Card Reports no additional complaints Resp Reports no additional complaints GI Reports abdominal pain (LLQ), Denies belching, Denies melena, Reports bloating, Denies change in bowel habits, Reports constipation, Denies dysphagia, Denies excessive flatus, Denies dyspepsia, Denies heartburn, Denies diarrhea, Denies loose stools, Denies nausea, Denies odynophagia and Denies vomiting Reports no additional complaints Musc Reports no additional complaints Neuro Reports no additional complaints Psych Reports no additional complaints Endo Reports no additional complaints Physical Exam Vital Signs: Last Vital Signs Pulse 66 08/19/23 13:09 BP 129/88 08/19/23 13:09 BMI result Body Mass Index 25.3 Const General: healthy appearing, no acute distress and well developed Nutritional Appearance: well nourished Orientation/consciousness: patient oriented x3 Resp Effort & Inspection: normal respiratory effort, able to speak in complete sentences, no tracheal deviation and symmetric chest movement Auscultation: clear to auscultation bilaterally Cardio Rate: regular rate GI Inspection: Yes normal to inspection and No distended Palpation (GI): Soft to palpation, not firm, nontender and No hepatosplenomegaly present Auscultation: normal bowel sounds General: Yes no CVA tenderness Back/Spine/Pelvis Back: no CVA tenderness Skin General skin exam: elasticity normal, turgor normal and dry skin Neuro General: patient oriented x3 Psych Appearance: grossly normal Mental Status: mental status grossly normal Results Reviewed Results Reviewed: CT OF ABDOMEN AND PELVIS FINDINGS: 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 Calcification adjacent to the right greater trochanter. L5-S1 disc disease. LUNG BASES: Atelectasis. Nonenlarged heart. No pericardial effusion. LIVER, GALLBLADDER, AND BILIARY TREE: The liver is normal in size, shape, and attenuation. Stable 2.1 cm right subcapsular cyst. No biliary ductal dilatation is present. The gallbladder is unremarkable with no evidence of radiopaque gallstones, gallbladder wall thickening, or obvious pericholecystic inflammatory changes. PANCREAS: Unremarkable. SPLEEN: Unremarkable. ADRENAL GLANDS: Unremarkable. KIDNEYS AND URETERS: The kidneys are normal in size, shape, and attenuation. No hydronephrosis, hydroureter, or calculi seen. No perinephric stranding. BLADDER: Unremarkable. GASTROINTESTINAL TRACT: Stomach is under distended. Nonobstructive bowel pattern. Unremarkable appendix. Moderate fecal retention. ABDOMINAL WALL: No significant hernia is appreciated. LYMPH NODES: Normal. VASCULAR: Unremarkable. PELVIC VISCERA: Unremarkable. OSSEOUS STRUCTURES: Unremarkable. CT/CT abdomen pelvis wo IV con IMPRESSION: No acute intra-abdominal or pelvic pathology. Assessment & Plan Assessment & Plan (1) Diverticulosis: Code(s): K57.90 - Diverticulosis of intestine, part unspecified, without perforation or abscess without bleeding (2) LLQ abdominal pain: Code(s): R10.32 - Left lower quadrant pain (3) Constipation: Code(s): K59.00 - Constipation, unspecified Qualifiers: Constipation type: chronic idiopathic constipation Qualified Code(s): K59.04 - Chronic idiopathic constipation (4) Postprandial abdominal bloating: Code(s): R14.0 - Abdominal distension (gaseous) Plan Stop Linzess and start Dulcolax 2 tablets every evening along with stool softeners. Patient was encouraged to increase fluid intake and activity to promote better bowel motility. Possibility that patient's pain could be related to ovarian cysts. History of ovarian cysts in the past. Patient does have a right adjacent trochanter calcification which does not truly explain the pain on the left side, however might be compensating and using her left side more. Pain is located in her left side just above SI joint. No tenderness noted to abdomen or to patient's back. Patient will follow-up with PCP. Patient might need more x-rays. Patient might benefit from physical therapy. Patient's pain is most likely related to severe diverticulosis and bowel not passing through. If patient continues to have pain we might have to send her for sigmoidoscopy to further evaluate the extent of her diverticulosis as well as look for any narrowing. Patient will return to the office in 3 months, sooner on as needed basis. Patient is agreeable to this plan and verbalizes understanding of instructions. She was given the opportunity to ask questions and all questions answered. Thank you for allowing me to participate in her care Medications: New Dulcolax (bisacodyl) (bisacodyl) 10 mg (2 x 5 mg) PO BEDTIME 180 tabs 4RF NS Discontinued linaclotide (Linzess) Discontinued Reason: Doctor's Order 145 mcg PO DAILY 30 caps 2RF Coding Level of Care Code Est Pt Level 4 (94208) Diagnoses Diverticulosis K57.90 LLQ abdominal pain R10.32 Chronic idiopathic constipation K59.04 Constipation type: chronic idiopathic constipation Postprandial abdominal bloating R14.0 Time Spent (min) 35 Comment 20 minutes spent with patient and additional 15 minutes spent reviewing her records
[2023-08-19 13:09] VITALS: BP 129/88; PULSE 66; BMI 25.3
== END 2023-08-19 14:22 | disposition home or self-care (01) ==
PROVIDERS: PCP Nurse Practitioner Family; Visit Provider Nurse Practitioner Family
DX: K57.90 Diverticulosis of intestine, part unspecified, without perforation or abscess without bleeding (principal); R10.32 Left lower quadrant pain; K59.04 Chronic idiopathic constipation; R14.0 Abdominal distension (gaseous)
CPT/HCPCS: 99214

== ENCOUNTER → 2023-08-19 12:55 | Outpatient (BNVA) | payer OTHER, SELFPAY | PROVIDERS: PCP Nurse Practitioner Family; Visit Provider Nurse Practitioner Family | DX: K57.90 Diverticulosis of intestine, part unspecified, without perforation or abscess without bleeding (principal); K59.04 Chronic idiopathic constipation; R10.32 Left lower quadrant pain; R14.0 Abdominal distension (gaseous) | CPT/HCPCS: 99212 ==

== ENCOUNTER 2024-09-03 12:08 | Outpatient (REF) | payer OTHER, SELFPAY ==
[2024-09-03 13:32] LABS: Erythrocyte Sedimentation Rate 7 MM/HR (0-20)
[2024-09-03 13:36] LABS: Alanine Aminotransferase 27 U/L (0-31); Albumin Level 4.1 g/dL (3.5-5.0); Anion Gap 11 (12-20); Aspartate Amino Transferase 27 U/L (5-31); Bilirubin Direct 0.1 mg/dL (0.0-0.5); Bilirubin Total 0.4 mg/dL (0.0-1.0); Blood Urea Nitrogen 14 mg/dL (9-16); Calcium 9.5 mg/dL (8.4-10.2); Carbon Dioxide 24 mmol/L (22-29); Chloride 109 mmol/L (96-108); Estimated Glomerular Filt Rate > 60; Glucose Random 106 mg/dL (60-115); Potassium 3.8 mmol/L (3.3-5.1); Sodium 140 mmol/L (135-145); Total Protein 7.3 g/dL (6.5-8.0)
[2024-09-03 13:43] LABS: Alkaline Phosphatase 60 U/L (39-117)
--- OUTSIDE RECORDS SUMMARY | 2024-09-03 13:48 | XMS_ITS | Clinical Summary ---
Author Organization [facility] Address [address] [place] [address] Care Team Providers Care Him Coder Name Role Phone Ranjan Parker ELECTRICAL ASSISTANT-C Primary Care Provider [phone] Source Comments PLEASE NOTE, if this patient is a minor, it may be UNLAWFUL to discuss sensitive information that is contained in these records (such as FAMILY PLANNING, MENTAL HEALTH or SUBSTANCE ABUSE) with the minor patient's parent or other person without the patient's specific authorization.[facility] Allergies No known active allergies Medications famotidine (PEPCID) 20 mg tabletIndication s:Acute gastritis without hemorrhage, unspecified gastritis type Take 1 Tab by mouth 2 (two) times daily 30 Tab 0 Active hydrocortisone (PROCTOSOL HC) 2.5 % topical creamIndications :Inflamed external hemorrhoid Place rectally 2 (two) times daily 30 g 2 1 Active diclofenac sodium (VOLTAREN) 1 % gel Apply topically 2 (two) times daily 100 g 2 Active ibuprofen 800 mg tabletIndication s:Chronic lumbosacral pain Take 1 Tablet by mouth 3 (three) times daily as needed for pain 60 Tablet 2 Active Active Problems Problem Noted Date Diagnosed Date Age spots 09/03/2020 Inflamed external hemorrhoid 09/03/2020 Intramural leiomyoma of uterus 06/18/2019 Overview (06/18/2019): [facility] Pelvic 10/25/2018 IMPRESSION: Multiple uterine leiomyomata, as also seen on the prior study of 11/01/2017. The largest has increased in size, currently measuring 7.2 x 5.9 x 8.2 cm, as compared to 6.1 x 4.4 x 6.4 cm on the prior study. A cyst versus a dominant follicle is present in the left ovary measuring 2.1 x 1.3 x 2.2 cm, new since since the previous examination. History of partial hysterectomy 06/18/2019 Overview (06/18/2019): Ovaries intact b/l Acute gastritis without hemorrhage 06/18/2019 Hx of mammogram 09/27/2017 Overview (09/27/2017): Negative in 09/2017 at [facility] Immunizations Immunization Administration Dates Next Due Flu, Cell Culture based, Pre servative Free, 6m+, Flucelvax 02/19/2020 Flu, Preservative Free 06/14/2019 PPD 02/23/2021,07/02/2019,05/25/2018 TDAP 02/25/2021 Family History Medical History Relation Name Comments Thyroid Disease Brother Diabetes Mother Hypertension Mother Thyroid Disease Mother Breast cancer Paternal Grandmother Relation Name Status Comments Brother Father Alive Mother Alive Paternal Grandmother Social History Tobacco Use Types Packs/Day Years Used Date Smoking Tobacco: Never Smokeless Tobacco: Never Alcohol Use Standard Drinks/Week Comments No 0 (1 standard drink = 0.6 oz pur e alcohol) Social Connections Answer Date Recorded Connectedness 0 02/11/2024 Financial Resource Strain Answer Date R ecorded Financial Resource Strain 0 2018 Stress Answer Date Recorded Stress 0 01/22/2019 Physical Activity Answer Date Recorded Physical Activity 0 01/22/2019 Food Insecurity Answer Date Recorded Food 0 03/01/2024 Transportation Needs Answer Date Record ed Transportation 0 01/22/2019 Housing Stability Answer Date Recorded Housing 0 01/22/2019 Safety and Environment Answer Date Ten rded Safety 0 08/15/2020 Utilities Answer Date Recorded Utilities 0 01/22/2019 Employment Answer Date Recorded Employment 0 01/22/2019 Comments No Sex and Gender Information Value Date Recorded Sex Assigned at Female 09/05/2017 8:18 AM PDT Legal Sex Female 9:08 AM PST Gender Identity Female 09/05/2017 8:18 AM PDT Sexual Orientation Straight 09/05/2017 8: 18 AM PDT Last Filed Vital Signs Vital Sign Reading Time Taken Comments Blood Pressure 126/82 10/19/2021 3:06 PM EDT Pulse 78 10/19/2021 3:06 PM EDT Temperature 37.2 ??C (98.9 ??F) 10/19/2021 3:06 PM ED T Respiratory Rate 16 10/19/2021 3:06 PM EDT Oxygen Saturation 98% 02/12/2021 10:04 AM EDT Inhaled Oxygen Concentration - - Weight 58.5 kg (129 lb) 10/19/2021 3:06 PM EDT Height 160 cm (5' 3 ) 10/19/2021 3:06 PM EDT Body Mass Index 22.85 10/19/2021 3:06 PM EDT Plan of Treatment Health Maintenance Due Date Last Done Comments Anxiety Screening 1976 HPV Screening 1976 Hepatitis C Screening 1976 Pap + HPV 1976 Tobacco Screening 1976 Imm-Hepatitis B (1 of 3 - 19 + 3-dose series) 10/08/1995 Cervical Cancer Screening 1997 Pap Smear 1997 Annual Preventive Care Visit 09/05/2018 09/05/2017 Relationship Safety Screening/Counseling 08/15/2021 08/15/2020 CT Colonography 2021 Colonoscopy 2021 Colorectal Cancer Screening 2021 FIT/gFOBT 2021 Fecal DNA 2021 Flexible Sigmoidoscopy 2021 Breast Cancer Screening (Mammogram) 04/09/2022 04/09/2021, 02/19/2021, 02/19/2021, Additional history exists Hypertension Screening (#1) 10/19/2022 09/05/2017 Diabetes Screening 08/16/2023 08/15/2020, 0 08/15/2020, 06/14/2019, Additional history exists [id number] ( season) 2024 021, 08/06/2020 Imm-Influenza (#1) 2024 09/17/2021, 0 02/19/2020, 06/14/2019, Additional history exists Alcohol and Drug Screen 06/06/2024 08/15/2020, 09/05 Depression Annual Screen 06/06/2024 08/15/2020 Lipid Screening 08/15/2025 08/15/2020, 06/14/2019 Imm-DTaP/Tdap/Td (2 - Td or Tdap) 02/25/2031 021 HIV Screening Completed 09/05/2017 Cervical Ablation/Cold-Knife Conization Discontinued Cervical Cryotherapy Discontinued Colposcopy Discontinued Endometrial Biopsy Discontinued Excision/Leep Discontinued HPV Genotyping Discontinued Vaginal Pap Discontinued Vulvoscopy Discontinued Procedures Procedure Name Priority Date/Time Associated Diagnosis Comments HISTORIC MAMMOGRAM 04/09/2021 3: 00 AM EDT HEMOGLOBIN GLYCOSYLATED A1C Routine 08/15/2020 11:46 AM EST Annual physical exam LIPID PANEL Routine 08/15/2020 11:46 AM EST Annual physical exam ANTIBODY HIV-1&HIV-2 SINGLE RESULT Routine 09/05/2017 11:45 AM EDT Healthcare maintenance from Last 3 Months or Most Recently Relevant to Health Maintenance Results * HISTORIC MAMMOGRAM (04/09/2021 3:00 AM EDT) Anatomical Region Laterality Modality Other 04/09/2021 3:00 AM EDT us Jackie Bustamante PA-C IMG MAMMO Final Result * HEMOGLOBIN, GLYCOSYLATED (A1C) (08/15/2020 11:46 AM EST) GLYCATED HEMOGLOBIN A1C 5.3 <6.5 % [facility] ESTIMATED AVERAGE GLUCOSE 105 mg/dL [facility] Blood Blood / Unknown 08/15/2020 1 1:46 AM EST 08/15/2020 4:29 PM EST Narrative [facility] - 08/15/2020 7:59 PM EST [employer], [place] [address] Chicken Picker - Maria A Fall MD PT ID [id number] ORD# [id number] us Jackie Bustamante PA-C LAB - BLOOD DRAW Final Result Performing Organization Address City/[facility]/ZIP Co de Phone Number [address] [address], * LIPID PANEL (08/15/2020 11:46 AM EST) CHOLESTEROL 142 0 - 200 mg/dL [facility] TRIGLYCERIDES 68 0 - 150 mg/dL [facility] HDL CHOLESTEROL 71 >40 mg/dL [facility] LDL CALCULATED 58 0 - 100 mg/dL [facility] TC-HDLC RATIO 2.0 0 - 4.4 mg/dL [facility] Blood Blood / Unknown 08/15/2020 1 1:46 AM EST 08/15/2020 4:29 PM EST Narrative [facility] - 08/15/2020 6:09 PM EST [employer] [address] Chicken Picker - Maria A Fall MD PT ID [id number] ORD# [id number] us Jackie Bustamante PA-C LAB - BLOOD DRAW Edited Result - Final Performing Organization Address City/[facility]/[place] [address], * HIV-1 & HIV-2 ANTIBODIES (09/05/2017 11:45 AM EDT) HIV 1 AND 2 ANTIBODY SCREEN NEGATIVE NEGATIVE [facility] Comment: This assay is a 4th generation assay allowing for earlier detection of HIV infection by detecting the presence of the HIV-1 p24 antigen as well as the traditional antibodies to HIV type 1 (including group O) and type 2. ??Use of a 4th generation assay is the current CDC recommendation for HIV screening. Blood specimen (specimen) Blood / Unknown 09/05/2017 11:45 AM EDT 09/05/2017 11:49 AM EDT Narrative [facility] - 09/05/2017 5:26 PM EDT [facility] [address] [place] [address] PT ID [id number] ORD# [id number] Meri Whipple ROLLER COASTER ENGINEER LAB - BLOOD DRAW Final Result [facility] [address] [place] [address], from Last 3 Months or Most Recently Relevant to Health Maintenance Insurance [employer] Care Teams Him Coder Relationship Specialty Start Date End Date Ranjan Parker FNP-C [address] [place] [address] PCP - General Internal Medicine 06/15/23
--- OUTSIDE RECORDS SUMMARY | 2024-09-03 13:48 | XMS_ITS | Clinical Summary ---
Author Organization [facility] Address [address] [place] [address] Phone Care Team Providers Care Replenishment Analyst Name Role Phone Jackie Bustamnate Primary Care Provider [phone] Allergies No known active allergies Medications diclofenac (VOLTAREN) 1 % topical gel Apply 1 Applicator topically 2 times daily. Applied to inflamed area in right lower inner breast. 1 Active cyclobenzaprine (FLEXERIL) 5 mg tablet Take 1 tablet (5 mg total) by mouth. for 7 days 5 Active gabapentin (NEURONTIN) 100 mg capsule Take 1 capsule (100 mg total) by mouth. 4 Active ibuprofen (ADVIL,MOTRIN) 400 mg tablet TAKE 1 TABLET BY MOUTH EVERY 6 HOURS FOR 10 DAYS NEEDED FOR PAIN WITH FOOD OR MILK Active senna 8.6 mg tablet Take 1 tablet (8.6 mg total) by mouth 2 (two) times a day if needed. for constipation 4 Active cholecalciferol (VITAMIN D-3) 50 mcg (2,000 unit) capsule Take 1 capsule (2,000 Units total) by mouth 1 (one) time each day. 90 each 3 5 07/13/19 26 Active Active Problems Problem Noted Date Diagnosed Date Chronic constipation 07/13/2024 Overview (07/13/2024): followed by [facility] Gastro Degeneration of intervertebral disc of cervical region 07/13/2024 Overview (07/13/2024): Seen by [facility] 2022 Dense breast tissue 07/13/2024 Diverticular disease 07/13/2024 Overview (07/13/2024): seen on colonscopy 05/2022 through [facility] Headache 07/13/2024 Pain in the abdomen 07/13/2024 Age spots 09/03/2020 Inflamed external hemorrhoid 09/03/2020 Acute gastritis without hemorrhage 06/18/2019 History of partial hysterectomy 06/18/2019 Overview (07/13/2024): Ovaries intact b/l Vitamin D deficiency 10/21/2018 Resolved Problems Problem Noted Date Diagnosed Date Resolved Date Intramural leiomyoma of uterus 06/18/2019 07/13/2024 Overview (07/13/2024): [facility] Pelvic 10/25/2018 IMPRESSION: Multiple uterine leiomyomata, as [...] cm, new since since the previous examination. Encounters Date Type Department Care Team Description 07/13/2024 8:45 AM EST Office Visit Obstetrics & Gynecology - [address] [address] Millicent Feldman CNM Encounter for well woman exam with routine gynecological exam (Primary Dx); Screening breast examination; Uses Albanian as primary spoken language from Last 3 Months Immunizations Name Administration Dates Next Due Influenza Quadrivalent, 0.5m l, preservative free (Fluarix; FluLaval; Fluzone) ages 6mo and older (Afluria) 3yo and older 06/14/2019 Influenza trivalent, 0.5mL, preservative free (Fluarix; FluLaval; Fluzone) ages 6mo and older (Afluria) 3 years and older 04/15/2022 Influenza trivalent, with pr eservative (Fluzone; Afluria) 6mo and older 09/17/2021,02/19/2020 PPD Test 02/23/2021,07/02/2019,05/25/2018 Pfizer SARS-CoV-2 COVID-19, mRNA, LNP-S, preservative free 08/27/2020,08/06/2020 Tdap Tetanus diptheria acell ular pertussis (Boostrix; Adacel) 7yo and older 02/25/2021,08/15/2020 Surgical History Surgery Date Site/Laterality Comments OVARIAN CYST REMOVAL PROCEDURE: RI OVARIAN CYSTECTOMY UNI/BI CERVICAL BIOPSY W/ LOOP ELECTRODE EXCISION PROCEDURE: RI CONIZATION CERVIX W/WO D&C RPR ELTRD EXC OTHER SURGICAL HISTORY 2019 PROCEDURE: HISTORICAL LAPAROSCOPIC HYSTERECTOMY WITH OR WITHOUT BSO; COMMENT: Dr. Dotson Medical History Medical History Date Comments Abnormal cytological finding in specimen from cervix 2004 DX:Abnormal cytological find ing in specimen from cervix; COMMENT: Brittani 2, LEEP/cryo Intramural leiomyoma of uterus 06/18/2019 M ercy US Pelvic 10/25/2018 IMPRESSION: Multiple uterine leiomyomata, as [...] cm, new since since the previous examination. Family History Medical History Relation Name Comments Thyroid disease Brother No Known Problems Father Hyperlipidemia Mother Hypertension Mother Thyroid disease Mother Breast cancer Neg Hx Ovarian cancer Neg Hx Uterine cancer Neg Hx Relation Name Status Comments Brother Alive Father Alive Mother Alive Sister 1 Alive Sister 2 Alive Sister 3 Alive Social History Tobacco Use Types Packs/Day Years Used Date Smoking Tobacco: Never Smokeless Tobacco: Never Tobacco Cessation:Counseling Given: Not Answered Alcohol Use Standard Drinks/Week Comments Yes 0 (1 standard drink = 0.6 oz pur e alcohol) Comments No Sex and Gender Information Value Date Recorded Sex Assigned at Not on file Legal Sex Female 9:43 AM EST Gender Identity Not on file Sexual Orientation Not on file Occupation Industry Job Start Date Job End Date [employer] Not on file Not on file Not on file Obstetrics History Para Term AB IAB SAB Ectopic Multiple Livin g Live Births 1 1 1 1 1 Date Outcome GA Total Labor Labor/2nd/3rd Weight Sex Type Anes PTL Letha A1 A5 Name Clin 2007 Term 39w0 d F Vag-S pont Living Last Filed Vital Signs Vital Sign Reading Time Taken Comments Blood Pressure 127/85 07/13/2024 8:39 AM EST Pulse 71 07/13/2024 8:39 AM EST Temperature - - Respiratory Rate - - Oxygen Saturation - - Inhaled Oxygen Concentration - - Weight 60.8 kg (134 lb) 07/13/2024 8:39 AM EST Height 157.5 cm (5' 2 ) 07/13/2024 8:39 AM EST Body Mass Index 24.51 07/13/2024 8:39 AM EST Plan of Treatment Health Maintenance Due Date Last Done Comments Hepatitis B Vaccines (1 of 3 - 19+ 3-dose series) 10/08/1995 Pneumococcal Vaccine: Pediatrics (0 to 5 Years) and At-Risk Patients (6 to 64 Years) (1 of 2 - PCV) 10/08/1995 Colorectal Cancer Screening: Colonoscopy 05/16/2022 Depression Screening 05/16/2022 Hepatitis C Screening 05/16/2022 Social Influencers of Health Screening 05/16/2022 COVID-19 Vaccine ( season) 2024 12/17/2021, 08/27/2020, 08/06/2020 Influenza Vaccine (#1) 2024 , 09/17/2021, 02/19/2020, Additional history exists Cholesterol Screening (Lipid Panel) 08/15/2025 08/15/2020, 08/15/2020, 08/15/2020, Additional history exists Cervical Cancer Screening: HPV 03/03/2026 03/03/2021 Breast Cancer Screening 04/06/2026 04/06/20 24, 03/30/2024, 01/31/2020, Additional history exists DTaP,Tdap,and Td Vaccines (3 - Td or Tdap) 02/25/2031 02/25/2021, 08/15/2020 HIV Screening Completed 09/05/2017 HIB Vaccines Aged Out No longer eligi ble based on patient's age to complete this topic HPV Vaccines Aged Out No longer eligi ble based on patient's age to complete this topic Hepatitis A Vaccines Aged Out No long er eligible based on patient's age to complete this topic IPV Vaccines Aged Out No longer eligi ble based on patient's age to complete this topic MMR Vaccines Aged Out No longer eligi ble based on patient's age to complete this topic Meningococcal ACWY Vaccine Aged Out N o longer eligible based on patient's age to complete this topic Meningococcal B Vacine Aged Out No lo nger eligible based on patient's age to complete this topic RSV Immunization Patients Under 20 months Aged Out No longer eligible based on patient's age to complete this topic Varicella Vaccines Aged Out No longer eligible based on patient's age to complete this topic Procedures Procedure Name Priority Date/Time Associated Diagnosis Comments MG MAMMO DIGITAL DIAGNOSTIC BILAT Routine 04/06/2024 8:20 AM EDT HPV Routine 03/03/2021 LIPID PANEL Routine 08/15/2020 from Last 3 Months or Most Recently Relevant to Health Maintenance Results * MG Mammo Digital Diagnostic bilat (04/06/2024 8:20 AM EDT) Anatomical Region Laterality Modality Breast Bilateral Mammography Historical Provider IMG BI PROCEDURES Final R esult * Cervical Cancer Screening: HPV (03/03/2021) [facility] Cervical Cancer Screening: HPV Negative, Abstracted Historical Provider HEALTH MAINTENANCE Final Result * Lipid panel (08/15/2020) [facility] LDL/HDL Ratio 0 Comment:No Interpretation, A bstracted Triglycerides 0 mg/dL Comment:No Interpretation, A bstracted Cholesterol 0 mg/dL Comment:No Interpretation, A bstracted HDL 0 mg/dL Comment:No Interpretation, A bstracted LDL Cholesterol 0 mg/dL Comment:No Interpretation, A bstracted Blood Venous blood specimen / Unknown Historical Provider LAB BLOOD ORDERABLES Teodora l Result from Last 3 Months or Most Recently Relevant to Health Maintenance Insurance [facility] [address] [place] [address] Care Teams Replenishment Analyst Relationship Specialty Start Date End Date Jackie Bustamante PA [address] [place] [address] PCP - General 04/10/21
[2024-09-04 08:05] LABS: HIV AB/AG Nonreactive (Nonreactive); HIV Num 1 0.07 S/CO (0.00-0.99)
[2024-09-04 08:20] LABS: Syphilis Screen Nonreactive (Nonreactive)
[2024-09-04 20:38] LABS: Lyme Abs Screen <0.90 index
[2024-09-05 15:04] LABS: IgA 281 mg/dL (47-310); IgG 1254 mg/dL (600-1640); IgM 167 mg/dL (50-300)
[2024-09-07 15:29] LABS: Anti Nuclear Antibody Pattern Nuclear, Nucleolar; Anti Nuclear Antibody Screen POSITIVE (NEGATIVE)
== END 2024-09-03 12:09 | disposition home or self-care (01) ==
LOC: HO.LAB 12:08
PROVIDERS: PCP Nurse Practitioner Family; Visit Provider Psychiatry & Neurology Neurology
DX: G93.49 Other encephalopathy (principal)
CPT/HCPCS: 36415; 80048; 80076; 82784; 85652; 86038; 86039; 86334; 86617; 86618; 86780; 87389

== ENCOUNTER 2024-10-12 09:42 | Day surgery (SDC) | payer OTHER, SELFPAY ==
--- OUTSIDE RECORDS SUMMARY | 2024-09-05 07:50 | XMS_ITS | Clinical Summary ---
Author Organization [facility] Address [address] [place] [address] Care Team Providers Care Regional Trainer Name Role Phone Ranjan Parker INSTRUMENT WORKER-Laureano Primary Care Provider [phone] Source Comments PLEASE NOTE, if this patient [...] Intramural leiomyoma of uterus 06/18/2019 Overview (06/18/2019): [facility] Pelvic 10/25/2018 IMPRESSION: Multiple uterine leiomyomata, as [...] 09/27/2017 Overview (09/27/2017): Negative in 09/2017 at [facility] Immunizations Immunization Administration Dates Next Due Flu, [...] 08/15/2020, 0 08/15/2020, 06/14/2019, Additional history exists [id number] ( season) 2024 021, 08/06/2020 Imm-Influenza (#1) [...] EST) GLYCATED HEMOGLOBIN A1C 5.3 <6.5 % [facility] [employer] (now [employer])[facility] ESTIMATED AVERAGE GLUCOSE 105 mg/dL [facility] Blood Blood / Unknown 08/15/2020 1 1:46 AM EST 08/15/2020 4:29 PM EST Narrative [facility] - 08/15/2020 7:59 PM EST [employer], [place] [address] Frozen Yogurt Maker - Maria A Fall MD PT ID [id number] ORD# [id number] us Jackie Bustamante PA-C LAB - BLOOD DRAW Final Result Performing Organization Address City/[facility]/ZIP Co de Phone Number [address] [address], * LIPID PANEL (08/15/2020 11:46 AM EST) CHOLESTEROL 142 0 - 200 mg/dL [facility] TRIGLYCERIDES 68 0 - 150 mg/dL [facility] HDL CHOLESTEROL 71 >40 mg/dL [facility] LDL CALCULATED 58 0 - 100 mg/dL [facility] TC-HDLC RATIO 2.0 0 - 4.4 mg/dL [facility] Blood Blood / Unknown 08/15/2020 1 1:46 AM EST 08/15/2020 4:29 PM EST Narrative [facility] - 08/15/2020 6:09 PM EST [employer] [place] [address] Frozen Yogurt Maker - Maria A Fall MD PT ID [id number] ORD# [id number] us Jackie Bustamante PA-C LAB - BLOOD DRAW Edited Result - Final Performing Organization Address City/[facility]/ZIP [place] [address], * HIV-1 & HIV-2 ANTIBODIES (09/05/2017 11:45 AM EDT) HIV 1 AND 2 ANTIBODY SCREEN NEGATIVE NEGATIVE [facility] Comment: This assay is a [...] AM EDT 09/05/2017 11:49 AM EDT Narrative [facility] - 09/05/2017 5:26 PM EDT [facility] [address] [place] [address] PT ID [id number] ORD# [id number] Meri Whipple GANG SUPERVISOR LAB - BLOOD DRAW Final Result [facility] [address] [place] [address], from Last 3 Months or Most Recently Relevant to Health Maintenance Insurance [employer] Care Teams Regional Trainer Relationship Specialty Start Date End Date Ranjan Parker FNP-C [address] [place] [address] PCP - General Internal Medicine 06/15/23
--- OUTSIDE RECORDS SUMMARY | 2024-09-05 07:50 | XMS_ITS | Clinical Summary ---
Author Organization [facility] Address [address] [place] [address] Phone Care Team Providers Care Hand Welt Butter Name Role Phone Jackie Bustamante Primary Care Provider [phone] Allergies No known active allergies Medications diclofenac [...] Chronic constipation 07/13/2024 Overview (07/13/2024): followed by [facility] Gastro Degeneration of intervertebral disc of cervical region 07/13/2024 Overview (07/13/2024): Seen by [facility] 2022 Dense breast tissue 07/13/2024 Diverticular disease 07/13/2024 Overview (07/13/2024): seen on colonscopy 05/2022 through [facility] Headache 07/13/2024 Pain in the abdomen 07/13/2024 [...] EST Office Visit Obstetrics & Gynecology - [address] [address] Millicent Feldman CNM Encounter for well woman exam with routine gynecological exam (Primary Dx); Screening breast examination; Uses Kazakh as primary spoken language from Last 3 [...] Date Site/Laterality Comments OVARIAN CYST REMOVAL PROCEDURE: [place] OVARIAN CYSTECTOMY UNI/BI CERVICAL BIOPSY W/ LOOP ELECTRODE EXCISION PROCEDURE: [place] CONIZATION CERVIX W/WO D&C RPR ELTRD EXC [...] Job Start Date Job End Date [employer] Not on file Not on file Not [...] esult * Cervical Cancer Screening: HPV (03/03/2021) [facility] Cervical Cancer Screening: HPV Negative, Abstracted Historical Provider HEALTH MAINTENANCE Final Result * Lipid panel (08/15/2020) [facility] LDL/HDL Ratio 0 Comment:No Interpretation, A bstracted Triglycerides 0 mg/dL Comment:No Interpretation, A bstracted Cholesterol 0 mg/dL Comment:No Interpretation, A bstracted HDL 0 mg/dL Comment:No Interpretation, A bstracted LDL Cholesterol 0 mg/dL Comment:No Interpretation, A bstracted Blood Venous blood specimen / Unknown Historical Provider LAB BLOOD ORDERABLES Teodora l Result from Last 3 Months or Most Recently Relevant to Health Maintenance Insurance [facility] [address] [place] [address] Care Teams Hand Welt Butter Relationship Specialty Start Date End Date Jackie Bustamante PA [address] [place] [address] PCP - General 04/10/21
[2024-10-12] VITALS (9 sets, daily range): BP systolic 113–135; BP diastolic 74–86; PULSE 50–68; RESP 14–16; TEMP 36.6–37.2; O2SAT 95–98; BMI 24.4
--- NOTE | ~2024-10-12 | FL_ITS ---
EXAMINATION: XR LUMBAR PUNCTURE CLINICAL INFORMATION: WHITE MATTER CHANGES COMPARISON: None available. TECHNIQUE: Following explaining fluoroscopy-guided lumbar puncture procedure, benefits and risk the patient, a written consent was obtained. Patient was placed prone on fluoroscopy table and skin marker was placed under fluoroscopy. The marked site was cleaned and draped in usual sterile manner. 1% lidocaine was injected puncture site. A 22-gauge spinal needle was advanced through the skin intrathecally at the L3-4 disc level. After removing the stylet and observing CSF return, patient was quickly placed in left lateral decubitus view and opening CSF pressure was obtained. CSF stent was then collected in 4 test tubes and sent to lab. The stylet was reintroduced postprocedure needle withdrawn. Patient tolerated procedure extremely well. Simple Band-Aid applied postprocedure. FINDINGS: On visualized images of the lumbar vertebral heights and alignment and disc heights are normal. Opening CSF pressure measured 8 c of water. Approximately 10 mL of clear CSF fluid was collected in 4 test tubes and sent to lab. FLUOROSCOPY TIME: 41 seconds DOSE AREA PRODUCT: 130.4 uGy-m2 (microgray-meter squared) FL/FL guided lumbar puncture LP IMPRESSION: Successful fluoroscopy-guided lumbar puncture performed at L3-4 disc level. Electronically signed by: Aamir Mera MD 10/16/2024 07:44 AM EDT
[2024-10-12 10:01] LABS: MANUAL DIFF FLAG NO
[2024-10-12 10:02] LABS: Basophils Absolute Auto 0.1 X10*3/uL (0.0-0.2); Basophils Percent Auto 0.6 % (0-2); Eosinophils Absolute Auto 0.1 X10*3/uL (0.0-0.4); Eosinophils Percent Auto 1.4 % (0-4); Hemoglobin 13.7 g/dl (12.0-16.0); Imm Gran Abs Auto 0.02 X10*3/uL (0.00-0.03); Imm Gran Pct Auto 0.2 % (0.0-0.4); Lymphocytes Absolute Auto 2.2 X10*3/uL (1.2-4.9); Lymphocytes Percent Auto 25.4 % (20-40); Mean Corpuscular HGB Conc 33.4 g/dl (31.0-35.0); Mean Corpuscular Hemoglobin 29.7 pg (27.0-33.0); Mean Corpuscular Volume 88.9 fL (80.0-98.0); Mean Platelet Volume 10.5 fL (9.4-12.3); Monocytes Absolute Auto 0.4 X10*3/uL (0.1-1.2); Monocytes Percent Auto 4.7 % (2-11); Neutrophils Absolute Auto 5.9 x10*3/uL (2.0-8.3); Neutrophils Percent Auto 67.7 % (45-73); Platelet Count 215 X10*3/uL (160-400); Red Blood Count 4.61 X10*6/uL (4.20-5.50); Red Cell Distribution Width 12.9 % (11.0-16.0); White Blood Count 8.7 X10*3/uL (4.8-10.8)
[2024-10-12 10:09] LABS: UPreg QC Valid YES; Urine Pregnancy NEGATIVE (NEGATIVE)
[2024-10-12 10:12] LABS: Prothrombin Time 11.8 SEC (10.9-12.4)
[2024-10-12 10:15] LABS: Partial Thromboplastin Time 34.3 SEC (26.0-36.8)
[2024-10-12 12:29] LABS: CSF Appearance Clear, Colorless; CSF Tube # 1
[2024-10-12 12:30] LABS: Appearance CSF CLEAR; CSF Tube # 4; CSF Volume 3.5 ML; Color CSF COLORLESS
[2024-10-12 12:33] LABS: Glucose CSF 60 mg/dL; Total Protein CSF 50.9 mg/dL (15-45)
[2024-10-12 13:04] LABS: CSF Monos 18 %; Lymphocytes CSF 64 %; Neutrophils CSF 18 %; Red Blood Cell CSF 46 MM*3; White Blood Cell CSF 2 MM*3
[2024-10-13 07:06] LABS: Oligoclonal Serum Yes
[2024-10-16 22:48] LABS: Albumin 4.3 g/dL (3.6-5.1); Albumin, CSF 31.3 mg/dL (8.0-42.0); IgG 1220 mg/dL (600-1640); IgG Synthesis Rate -6.7 mg/24 h (-9.9-3.3); IgG, CSF 3.5 mg/dL (0.8-7.7)
[2024-10-17 18:59] LABS: Oligoclonal Banding Absent (Absent)
== END 2024-10-12 13:10 | disposition home or self-care (01) ==
PROVIDERS: Radiology Diagnostic Radiology; PCP Nurse Practitioner Family; Visit Provider Psychiatry & Neurology Neurology
PROC: 009U3ZZ Drainage of Spinal Canal, Percutaneous Approach (ICD-10-PCS; CPT 62270; principal; 2024-10-12 11:00)
DX: G93.49 Other encephalopathy (principal); G43.909 Migraine, unspecified, not intractable, without status migrainosus; Z79.899 Other long term (current) drug therapy
CPT/HCPCS: 36415; 62328; 81025; 82042; 82945; 83916; 84157; 85025; 85610; 85730; 87015; 87070; 87205; 89051; J2003

== ENCOUNTER → 2024-10-12 11:00 | Outpatient (BNV) | payer OTHER, SELFPAY | PROVIDERS: PCP Nurse Practitioner Family; Visit Provider Radiology Diagnostic Radiology | DX: R90.82 White matter disease, unspecified (principal) | CPT/HCPCS: 62328 ==